=== PATIENT | female | born 1960 | race African-American/Black ===

== ENCOUNTER 2018-10-10 08:04 | Day surgery (SDC) | payer OTHER ==
[~2018-10-10] VITALS: Ht 157.5 cm; Wt 150.9 kg
[~2018-10-10 08:04] MED LIST: SODIUM CHLORIDE 0.9% 1,000 ML IV ONE
[2018-10-10 09:19] LABS: GLUCOMETER DEV NAME(LOC) SDS.; GLUCOSE,POINT OF CARE 68 MG/DL (70-110)
[2018-10-10] MEDS: SODIUM CHLORIDE 0.9% 1,000 ML IV ONE (10:54)
[2018-10-10] MEDS ORDERED: LIDOCAINE/PF 2% 5 ML VIAL INJ ONE (12:00)
[2018-10-10] MEDS ORDERED: PROPOFOL 1% 20 ML VIAL IVP ONE (12:00)
== END 2018-10-10 12:55 | disposition home or self-care (01) ==
LOC: SURGERY 08:04
PROVIDERS: ATTEND Internal Medicine Gastroenterology
DX: Z12.11 Encounter for screening for malignant neoplasm of colon (principal); K63.5 Polyp of colon; G40.909 Epilepsy, unspecified, not intractable, without status epilepticus; K21.9 Gastro-esophageal reflux disease without esophagitis; I10 Essential (primary) hypertension; E78.5 Hyperlipidemia, unspecified; E66.01 Morbid (severe) obesity due to excess calories; E11.9 Type 2 diabetes mellitus without complications; Z90.49 Acquired absence of other specified parts of digestive tract; Z79.84 Long term (current) use of oral hypoglycemic drugs; Z80.0 Family history of malignant neoplasm of digestive organs; Z68.43 Body mass index [BMI] 50.0-59.9, adult
CPT/HCPCS: 45385; 82962; 88305; C1769; J2704; J3490; J7030